=== PATIENT | male | born 1990 | race African-American/Black ===

== ENCOUNTER 2020-07-08 22:36 | Emergency (ER) | payer OTHER ==
[~2020-07-08] VITALS: Ht 185.4 cm; Wt 122.5 kg
[~2020-07-08 22:36] MED LIST: ASPIR 8181 MG PO; COREG25 MG PO; LANTUS100 UNIT/M SUBQ; LISINOPRIL10 MG PO; NOVOLOG100 UNIT/1 SUBQ; PRAVACHOL20 MG PO; [UNRECOGNIZED DRUG - OTHER] PO
[2020-07-09] MEDS ORDERED: PENICILLIN V P500 MG PO (00:29)
[2020-07-09] MEDS ORDERED: NORCO5 PO (00:29)
[2020-07-09 00:46] VITALS: BP 172/94
== END 2020-07-09 00:47 | disposition home or self-care (01) ==
LOC: ER 22:36
DX: K02.9 Dental caries, unspecified (principal); I10 Essential (primary) hypertension; E11.9 Type 2 diabetes mellitus without complications; I25.2 Old myocardial infarction; E78.5 Hyperlipidemia, unspecified; F17.210 Nicotine dependence, cigarettes, uncomplicated; Z79.4 Long term (current) use of insulin; Z79.899 Other long term (current) drug therapy